=== PATIENT | male | born 1975 | race Caucasian/White ===

== ENCOUNTER 2018-05-26 14:12 | Emergency (ER) | payer SELFPAY ==
[2018-05-26] MEDS ORDERED: Lidocaine 1% w/Epinephrine 1:100K 30 ML VIAL ONE (14:30)
--- NOTE | 2018-05-26 14:50 | RAD ---
LEFT FOREARM 2 VIEWS: Date: 05/26/18 HISTORY: Left arm injury. FINDINGS: Radius and ulna are intact. No acute fracture, dislocation, or metallic foreign bodies are apparent. Soft tissue laceration and shallow soft tissue gas are evident along the volar aspect of the forearm on the lateral view. IMPRESSION: Soft tissue injury. No acute osseous abnormalities are demonstrated. POS: [facility]
[2018-05-26] MEDS ORDERED: Bacitracin Zinc 1 Packet ONE (15:07)
== END 2018-05-26 15:30 | disposition home or self-care (01) ==
LOC: NAV ERS 14:12
DX: S51.812A Laceration without foreign body of left forearm, initial encounter (principal); I10 Essential (primary) hypertension; F17.210 Nicotine dependence, cigarettes, uncomplicated; W27.0XXA Contact with workbench tool, initial encounter
CPT/HCPCS: 12002; 96372; J2001; J2270